=== PATIENT | female | born 1980 | race African-American/Black ===

== ENCOUNTER 2016-06-23 00:19 | Emergency (ER) | payer BC, MEDICAID, OTHER ==
[~2016-06-23] VITALS: Ht 170.2 cm; Wt 67.2 kg
[~2016-06-23 00:19] MED LIST: IBUP400 PO; OSEL75 PO; TYLE500T PO
[2016-06-23 01:21] LABS: BLOOD, URINE NEG (NEG); GLUCOSE,URINE NEG (NEG); KETONE, URINE NEG (NEG); NITRITE,URINE NEG (NEG)
[2016-06-23 01:32] LABS: URINE COLOR YELLOW (YELLW/STRAW)
[2016-06-23 01:34] LABS: RBC, URINE 0-3 /hpf (0-3)
[2016-06-23 01:35] LABS: BACTERIA, URINE RARE /hpf; COMMENT (UR) CULT NOT INDICATED; CULTURE IF INDICATED CULT NOT INDICATED; MUCUS URINE OCC /lpf (OCC)
[2016-06-23] MEDS ORDERED: ACET25TA4 (03:08)
[2016-06-23] MEDS ORDERED: IBUP400T20 PO (03:08)
[2016-06-23] MEDS ORDERED: ZANT150T2 PO (03:08)
[2016-06-23 03:10] VITALS: BP 128/85; PULSE 77; RESP 16; TEMP 98.5
--- NOTE | 2016-06-23 04:53 | PD ---
HPI Chief Complaint: Abdominal Pain Time Seen by Provider: 03:14 Travel History International Travel<30 days: No Contact w/Intl Traveler<30days: No Traveled to known affect area: No History of Present Illness HPI The patient is 35 years old. She arrives complaining of abdominal pain in the epigastric and suprapubic distributions. She has taken numerous at home tests which have all been negative. She reports some nausea as well as lightheadedness. After talking with the mother she arrives with a concern she may have an ectopic . She also states she suffers with GERD on a chronic basis. She has missed her last 2 menstrual cycles, very abnormal for her. Her past medical history includes GERD insomnia and anxiety. She denies a past surgical history. She has allergies to Naprosyn latex. She takes Zantac and Benadryl as needed. PFSH Past Medical History Hx Anticoagulant Therapy: No Asthma: Yes (BRONCHITIS) Anxiety: Yes Depression: Yes Cardiovascular Problems: No Chemotherapy: No Cerebrovascular Accident: No Diabetes: Yes ( DIABETIES) Patient Takes Glucophage: No Diminished Hearing: No Gastrointestinal Disorders: Yes (GERD) GERD: Yes Genitourinary: Yes (UTI) Insomnia: Yes Psychiatric: Yes (ANXIETY) Respiratory: Yes (Asthma ) Immunizations Current: No Tetanus Vaccination: Unknown Influenza Vaccination: No ?: Unknown LMP: 04/24/2016 : 2 Para: 1 Miscarriage: 2 : 0 Ectopic : No Ovarian Cysts: No Dilation and Curettage (D&C): No Tubal Ligation: No Past Surgical History Hysterectomy: No Other Surgery: Yes (cyst remove for head) Social History Alcohol Use: Yes ("ONCE A YEAR") Tobacco Use: Yes (1 DAY) Substance Use: No Allergies-Medications (Allergen,Severity, Reaction): Coded Allergies: Latex (Verified Allergy, Severe, RASH, 06/23/16) PAIN AND ITCHY. Naproxen (Verified Adverse Reaction, Mild, NAUSEA, 06/23/16) Reported Meds & Prescriptions Reported Meds & Active Scripts Active Reported Acetaminophen Pm Extra St (Diphenhydramine-Acetaminophen) 500-25 mg Tab Zantac (Ranitidine HCl) 150 Mg Tab 150 Cap PO BID Ibuprofen 400 Mg Tab 400 Mg PO Q4H PRN Review of Systems Except as stated in HPI: all other systems reviewed are Neg General / Constitutional: No: Fever, Chills Gastrointestinal: Positive: Nausea, Abdominal Pain, No: Vomiting, Diarrhea Genitourinary: No: Urgency, Frequency, Dysuria Physical Exam Narrative GENERAL: 35-year-old female pleasant well-nourished well-developed no acute distress SKIN: Warm and dry. HEAD: Atraumatic. Normocephalic. EYES: Pupils equal and round. No scleral icterus. No injection or drainage. ENT: No nasal bleeding or discharge. Mucous membranes pink and moist. NECK: Trachea midline. No JVD. CARDIOVASCULAR: Regular rate and rhythm. RESPIRATORY: No accessory muscle use. Clear to auscultation. Breath sounds equal bilaterally. GASTROINTESTINAL: Soft. No suprapubic tenderness. Negative Yuan sign. No tenderness at McBurney's point. MUSCULOSKELETAL: Extremities without clubbing, cyanosis, or edema. No obvious deformities. NEUROLOGICAL: Awake and alert. No obvious cranial nerve deficits. Motor grossly within normal limits. Five out of 5 muscle strength in the arms and legs. Normal speech. PSYCHIATRIC: Appropriate mood and affect; insight and judgment normal. Data Data Last Documented VS Vital Signs Date Time Temp Pulse Resp B/P Pulse Ox O2 Delivery O2 Flow Rate FiO2 06/23/16 03:10 98.5 77 16 128/85 Vital signs reviewed Orders Urinalysis - C+S If Indicated (06/23/16 01:09) Ed Urine Pregnancytest Poc (06/23/16 04:32) Labs Laboratory Tests Test 06/23/16 01:06 Urine Color YELLOW Urine Turbidity CLEAR Urine pH 6.0 Urine Specific [place] 1.018 Urine Protein NEG mg/dL Urine Glucose (UA) NEG mg/dL Urine Ketones NEG mg/dL Urine Occult Blood NEG Urine Nitrite NEG Urine Bilirubin NEG Urine Leukocyte Esterase TRACE Urine RBC 0-3 /hpf Urine WBC 3-5 /hpf Urine Squamous Epithelial 6-8 /hpf Cells Urine Amorphous Sediment SMALL Urine Bacteria RARE /hpf Urine Mucus OCC /lpf Microscopic Urinalysis Comment CULT NOT INDICATED MDM Medical Decision Making Medical Screen Exam Complete: Yes Emergency Medical Condition: Yes Medical Record Reviewed: Yes Differential Diagnosis Constipation, Gastritis, Acute Cholecystitis, Biliary Colic, Pancreatitis, PANDYA , Hepatitis, Bowel Obstruction, Cystitis, Mesenteric Ischemia, AAA, Appendicitis , Renal Stone/Hydronephrosis, GERD, perforated viscous Narrative Course Urinalysis is a contaminated specimen and cystitis is considered unlikely The urine test is normal The patient was reassured that she does not have ectopic . The abdomen exam is benign. Symptoms were present for only a brief time. Acute disease is considered reasonably safely excluded based on exam and history. Return precautions discussed. Patient reassured. Diagnosis Primary Impression: Abdominal pain Qualified Code: R10.13 - Epigastric pain Referrals: Primary Care Physician 2 days Additional Instructions: You have a choice when it comes to health care, and we are glad that you chose [facility]. Hopefully, we have met your expectations on today's visit. You are welcome to return to [facility] at any time, as we are committed to meeting the health care needs of our community. Med/Other Pt SpecificInfo: No Change to Meds Disposition: 01 DISCHARGE HOME Condition: Juan Quintero MD Jun 23, 2016 04:53
== END 2016-06-23 05:06 | disposition home or self-care (01) ==
LOC: PHED 00:19
DX: R10.13 Epigastric pain (principal); R11.0 Nausea; R42 Dizziness and giddiness; K21.9 Gastro-esophageal reflux disease without esophagitis; F17.210 Nicotine dependence, cigarettes, uncomplicated
CPT/HCPCS: 81001; 84703; 99284

== ENCOUNTER 2016-08-19 14:41 | Emergency (ER) | payer MEDICAID, OTHER ==
[~2016-08-19] VITALS: Ht 170.2 cm; Wt 66.0 kg
[~2016-08-19 14:41] MED LIST changes: +ACET25TA4; -IBUP400 PO; +IBUP400T20 PO; -OSEL75 PO; -TYLE500T PO; +ZANT150T2 PO
[2016-08-19 14:47] VITALS: BP 135/83; PULSE 105; RESP 18; TEMP 98.3; O2SAT 99
--- NOTE | 2016-08-19 14:58 | PD ---
HPI Chief Complaint: Oral / Dental Pain or Problem Time Seen by Provider: 14:57 Travel History International Travel<30 days: No Contact w/Intl Traveler<30days: No Traveled to known affect area: No History of Present Illness HPI 36-year-old Afro-[place]ian female presents the emergency department with left upper dental pain since yesterday. Specifically the #16 tooth. She complains of pain, feeling of swelling in the right upper cheek, and pain radiating to the ear. Patient complains of sensitivity to hot and cold. She denies fever, chills, or difficulty swallowing. She is allergic to latex and Naprosyn. PFSH Past Medical History Hx Anticoagulant Therapy: No Asthma: Yes (BRONCHITIS) Anxiety: Yes Depression: Yes Cardiovascular Problems: No Chemotherapy: No Cerebrovascular Accident: No Diabetes: Yes ( DIABETIES) Diminished Hearing: No Gastrointestinal Disorders: Yes (GERD) GERD: Yes Genitourinary: Yes (UTI) Insomnia: Yes Psychiatric: Yes (ANXIETY) Respiratory: Yes (Asthma ) Immunizations Current: No ?: Not : 2 Para: 1 Miscarriage: 2 : 0 Ectopic : No Ovarian Cysts: No Dilation and Curettage (D&C): No Tubal Ligation: No Past Surgical History Hysterectomy: No Other Surgery: Yes (cyst remove for head) Social History Alcohol Use: Yes ("ONCE A YEAR") Tobacco Use: Yes (1 PK DAY) Substance Use: No Allergies-Medications (Allergen,Severity, Reaction): Coded Allergies: Latex (Verified Allergy, Severe, RASH, 08/19/16) PAIN AND ITCHY. Naproxen (Verified Adverse Reaction, Mild, NAUSEA, 08/19/16) Reported Meds & Prescriptions Reported Meds & Active Scripts Active Reported Zantac (Ranitidine HCl) 150 Mg Tab 150 Cap PO BID Review of Systems Except as stated in HPI: all other systems reviewed are Neg General / Constitutional: No: Fever Eyes: No: Visual changes HENT: Positive: Dental Difficulties, Earache, No: Headaches, Vertigo, Lightheadedness, Sore Throat, Rhinitis, Rhinorrhea, Congestion, Nosebleed, Neck Stiffness, Neck Pain, Masses, Gingival Bleeding, Ear Discharge, Other Cardiovascular: No: Chest Pain or Discomfort Respiratory: No: Shortness of Breath Gastrointestinal: No: Abdominal Pain Genitourinary: No: Dysuria Musculoskeletal: No: Pain Skin: No Rash Neurologic: No: Weakness Psychiatric: No: Depression Endocrine: No: Polydipsia Hematologic/Lymphatic: No: Easy Bruising Physical Exam Narrative GENERAL: Patient appears in [id number]-[id number] distress. SKIN: Warm and dry. Normal color. Normal turgor. No rash. HEAD: Atraumatic. Normocephalic. Patient has mild swelling over the left upper jaw. EYES: Pupils equal and round. No scleral icterus. No injection or drainage. ENT: No nasal bleeding or discharge. Mucous membranes pink and moist. Patient has tenderness with palpation of the #16 tooth, without significant signs of abscess currently. NECK: Trachea midline. Pharynx is clear. Airway is patent. CARDIOVASCULAR: Regular rate and rhythm. RESPIRATORY: No accessory muscle use. Clear to auscultation. Breath sounds equal bilaterally. GASTROINTESTINAL: Abdomen soft, non-tender, nondistended. Hepatic and splenic margins not palpable. MUSCULOSKELETAL: Extremities without clubbing, cyanosis, or edema. No obvious deformities. NEUROLOGICAL: Awake and alert. No obvious cranial nerve deficits. Motor grossly within normal limits. Five out of 5 muscle strength in the arms and legs. Normal speech. PSYCHIATRIC: Appropriate mood and affect; insight and judgment normal. Data Data Last Documented VS Vital Signs Date Time Temp Pulse Resp B/P Pulse Ox O2 Delivery O2 Flow Rate FiO2 08/19/16 14:47 98.3 105 18 135/83 99 Orders Ketorolac Inj (Toradol Inj) (08/19/16 15:00) Ambq-Rjul-Ppyb Liq (Magic Mouthwash Adul (08/19/16 15:00) Amoxicillin (Trimox) (08/19/16 15:00) [facility] Medical Decision Making Medical Screen Exam Complete: Yes Emergency Medical Condition: Yes Differential Diagnosis Dental pain. Dental caries. Dental abscess. Narrative Course Patient is medically stable at time of exam. Patient is given Toradol 60 mg IM as well as Magic mouthwash 10 mL swish and spit. Patient is given her first dose of amoxicillin 875 mg by mouth. Patient will be continued on amoxicillin 875 twice a day 10 days. Patient also continued on Magic mouthwash 5-10 mL every 2 hours when necessary pain. 120 mL with 1 refill. Patient is given ibuprofen 800 mg 3 times daily with food #30. Patient take extra strength Tylenol as well. Patient should follow with dental care as soon as possible. Patient can return to emergency department worsening symptoms as needed. Diagnosis Primary Impression: Abscess, dental Referrals: Dentist Patient Instructions: Dental Abscess (ED), General Instructions Additional Instructions: Patient is given Toradol 60 mg IM as well as Magic mouthwash 10 mL swish and spit. Patient is given her first dose of amoxicillin 875 mg by mouth. Patient will be continued on amoxicillin 875 twice a day 10 days. Patient also continued on Magic mouthwash 5-10 mL every 2 hours when necessary pain. 120 mL with 1 refill. Patient is given ibuprofen 800 mg 3 times daily with food #30. Patient take extra strength Tylenol as well. Patient should follow with dental care as soon as possible. Patient can return to emergency department worsening symptoms as needed. Med/Other Pt SpecificInfo: Prescription(s) given Disposition: 01 DISCHARGE HOME Condition: Stable Jim Apple August 19, 2016 14:58
[2016-08-19] MEDS ORDERED: KETOROLAC TROMETHAMINE 60 MG/2 ML (IM) VIAL IM ONE (15:00)
[2016-08-19] MEDS ORDERED: NYSTAT/DIPHENHY/LIDO MOUTHWASH (Adult) 120ML SWISH-SWAL ONE (15:00)
[2016-08-19] MEDS ORDERED: AMOXICILLIN 875 MG TAB PO ONE (15:00)
[2016-08-19] MEDS ORDERED: AMOX875T PO (15:34)
[2016-08-19] MEDS ORDERED: MAGICADU2 SWISH-SWAL (15:34)
[2016-08-19] MEDS ORDERED: IBUP800T23 PO (15:34)
== END 2016-08-19 15:35 | disposition home or self-care (01) ==
LOC: PHEFT 14:41
DX: K04.7 Periapical abscess without sinus (principal); J45.909 Unspecified asthma, uncomplicated; K21.9 Gastro-esophageal reflux disease without esophagitis; F17.210 Nicotine dependence, cigarettes, uncomplicated
CPT/HCPCS: 96372; 99282; J1885

== ENCOUNTER 2016-09-17 11:41 | Emergency (ER) | payer OTHER ==
[~2016-09-17] VITALS: Ht 170.2 cm; Wt 67.0 kg
[~2016-09-17 11:41] MED LIST changes: -ACET25TA4; +AMOX875T PO; -IBUP400T20 PO; +IBUP800T23 PO; +MAGICADU2 SWISH-SWAL
[2016-09-17 11:43] VITALS: BP 125/85; PULSE 114; RESP 16; TEMP 98.3; O2SAT 99
[2016-09-17] MEDS ORDERED: IBUP800T23 PO (13:29)
[2016-09-17] MEDS ORDERED: ROBA500T PO (13:29)
[2016-09-17] MEDS ORDERED: KETOROLAC TROMETHAMINE 60 MG/2 ML (IM) VIAL IM ONE (13:30)
--- NOTE | 2016-09-17 13:30 | PD ---
HPI Chief Complaint: Back/ Neck Pain or Injury Time Seen by Provider: 13:15 Travel History International Travel<30 days: No Contact w/Intl Traveler<30days: No Traveled to known affect area: No History of Present Illness HPI 36-year-old female presents emergency department for evaluation of back pain 1 day after lifting heavy laundry basket. Patient reports the pain is spasming in nature, nonradiating, localized to the left thoracic region, similar to previous muscle spasms. She reports mild improvement with Motrin 800. She denies numbness or tingling in the lower extremities, incontinence, lower extremity weakness, chest pain, abdominal pain, shortness breath. PFSH Past Medical History Hx Anticoagulant Therapy: No Asthma: Yes (BRONCHITIS) Anxiety: Yes Depression: Yes Cardiovascular Problems: No Chemotherapy: No Cerebrovascular Accident: No Patient Takes Glucophage: No Diminished Hearing: No Gastrointestinal Disorders: Yes (GERD) GERD: Yes Genitourinary: Yes (UTI) Insomnia: Yes Psychiatric: Yes (ANXIETY) Respiratory: Yes (Asthma ) Immunizations Current: No Tetanus Vaccination: Unknown Influenza Vaccination: No ?: Not : 3 Para: 1 Miscarriage: 2 : 0 Ectopic : No Ovarian Cysts: No Dilation and Curettage (D&C): No Tubal Ligation: No Past Surgical History Surgical History: No Previous Surgery Hysterectomy: No Other Surgery: Yes (cyst remove for head) Social History Alcohol Use: Yes (Rare) Tobacco Use: Yes (1 PPD) Substance Use: No Allergies-Medications (Allergen,Severity, Reaction): Coded Allergies: Latex (Verified Allergy, Severe, RASH, 09/17/16) PAIN AND ITCHY. Naproxen (Verified Adverse Reaction, Mild, NAUSEA, 09/17/16) Reported Meds & Prescriptions Reported Meds & Active Scripts Active Magic Mouthwash Adult Liq (Multi-Ingredient Mouthwash/Gargle) 120 Ml Susp 5 Ml SWISH-SWAL ACHS Each 5 mL contains: Nystatin 200,000 units, Diphenhydramine 4.25 mg, Viscous Lidocaine 10 mg, Unger syrup 0.8 mL Ibuprofen 800 Mg Tab 800 Mg PO Q8H PRN Amoxicillin 875 Mg Tab 875 Mg PO BID Reported Zantac (Ranitidine HCl) 150 Mg Tab 150 Cap PO BID Review of Systems Except as stated in HPI: all other systems reviewed are Neg Physical Exam Narrative GENERAL: Alert, well-appearing female. No acute distress SKIN: Focused skin assessment warm/dry. HEAD: Atraumatic. Normocephalic. CARDIOVASCULAR: Regular rate and rhythm. No murmur appreciated. RESPIRATORY: No accessory muscle use. Clear to auscultation. Breath sounds equal bilaterally. GASTROINTESTINAL: Abdomen soft, non-tender, nondistended. Hepatic and splenic margins not palpable. MUSCULOSKELETAL: No obvious deformities. No clubbing. No cyanosis. No edema. 2+ DTRs. Dorsiflex and plantar flexion intact. BACK: No midline spine tenderness. Tenderness right paraspinous muscles thoracic region. NEUROLOGICAL: Awake and alert. No obvious cranial nerve deficits. Motor grossly within normal limits. Normal speech. PSYCHIATRIC: Appropriate mood and affect; insight and judgment normal. Data Data Last Documented VS Vital Signs Date Time Temp Pulse Resp B/P Pulse Ox O2 Delivery O2 Flow Rate FiO2 09/17/16 11:43 98.3 114 16 125/85 99 MDM Medical Decision Making Medical Screen Exam Complete: Yes Emergency Medical Condition: Yes Differential Diagnosis Thoracic muscle strain, lumbar strain, herniated disc, Narrative Course 36-year-old female presents emergency department for evaluation of right thoracic back pain after bending over and picking up a heavy basket of laundry. She reports similar pain in the past with previous muscle spasms. She took Motrin 800 with minimal relief. On exam patient has no midline spine tenderness , no weakness or pain in lower extremities, no incontinence. Patient has tender right sided thoracic paraspinous muscles. Diagnosis Primary Impression: Strain of thoracic region Qualified Code: S29.019A - Strain of thoracic region, initial encounter Referrals: Primary Care Physician Scripts Methocarbamol (Robaxin)500 Mg [id number] Mg PO TID PRN (MUSCLE SPASM) #12 TAB Prov:Ayse Henson 09/17/16 Ibuprofen 800 Mg [id number] Mg PO Q8H PRN (Pain/Inflammation) #30 TAB Prov:Ayse Henson 09/17/16 Disposition: 01 DISCHARGE HOME Condition: Stable Ayse Henson Sep 17, 2016 13:30
[2016-09-17] MEDS ORDERED: ORPHENADRINE INJ 60 MG/2 ML AMP IM ONE (13:45)
== END 2016-09-17 13:52 | disposition home or self-care (01) ==
LOC: PHED 11:41 → PHEFT 13:52
DX: S29.012A Strain of muscle and tendon of back wall of thorax, initial encounter (principal); X50.9XXA Other and unspecified overexertion or strenuous movements or postures, initial encounter; Y93.E2 Activity, laundry
CPT/HCPCS: 96372; 99284; J2360

== ENCOUNTER 2017-04-11 00:36 | Emergency (ER) | payer OTHER ==
[~2017-04-11] VITALS: Ht 170.2 cm; Wt 73.0 kg
[~2017-04-11 00:36] MED LIST changes: +IBUP1TAB7 PO; -IBUP800T23 PO; +ROBA500T PO
[2017-04-11 00:39] VITALS: BP 129/74; PULSE 96; RESP 20; TEMP 98.1; O2SAT 98
[2017-04-11] MEDS ORDERED: IBUP1TAB5 PO (00:52)
[2017-04-11] MEDS ORDERED: IBUP-232 PO (01:47)
[2017-04-11] MEDS ORDERED: AMOX875T PO (01:47)
--- NOTE | 2017-04-11 01:48 | PD ---
HPI Chief Complaint: Oral / Dental Pain or Problem Time Seen by Provider: 00:41 Travel History International Travel<30 days: No Contact w/Intl Traveler<30days: No Traveled to known affect area: No History of Present Illness HPI The patient is a 36-year-old female who states she has had dental problems since she was a child. She has not yet seen a dentist. She has had multiple visits to emergency department for dental infections. She complains of tooth # 1 in particular being painful but has multiple teeth in her mouth that apparently have dental infections. She denies any fever. She states she had a heart murmur when she is but apparently not now. PFSH Past Medical History Hx Anticoagulant Therapy: No Asthma: Yes (BRONCHITIS) Anxiety: Yes Depression: Yes Cardiovascular Problems: No Chemotherapy: No Cerebrovascular Accident: No Diminished Hearing: No Gastrointestinal Disorders: Yes (GERD) GERD: Yes Genitourinary: Yes (UTI) Insomnia: Yes Psychiatric: Yes (ANXIETY) Respiratory: Yes (Asthma ) Immunizations Current: No ?: Not : 3 Para: 1 Miscarriage: 2 : 0 Ectopic : No Ovarian Cysts: No Dilation and Curettage (D&C): No Tubal Ligation: No Past Surgical History Hysterectomy: No Other Surgery: Yes (cyst remove for head) Social History Alcohol Use: Yes (Rare) Tobacco Use: Yes (1 PPD) Substance Use: No Allergies-Medications (Allergen,Severity, Reaction): Coded Allergies: latex (Verified Allergy, Severe, RASH, 04/11/17) PAIN AND ITCHY. naproxen (Verified Adverse Reaction, Mild, NAUSEA, 04/11/17) Reported Meds & Prescriptions Reported Meds & Active Scripts Active Amoxicillin 875 Mg Tab 875 Mg PO BID Reported Ibuprofen 400 Mg Tab 400 Mg PO Q8H PRN Review of Systems Except as stated in HPI: all other systems reviewed are Neg Physical Exam Narrative GENERAL: Well-nourished, well-developed patient in minimal apparent distress with her dental discomfort. Her vital signs are normal except for heart rate of 96. When I see the patient her heart rate is in the mid 80s. SKIN: Focused skin assessment warm/dry. No skin rash is seen. HEAD: Normocephalic. EYES: No scleral icterus. No injection or drainage. NECK: Supple, trachea midline. No JVD or lymphadenopathy. CARDIOVASCULAR: Regular rate and rhythm without murmurs, gallops, or rubs. RESPIRATORY: Breath sounds equal bilaterally. No accessory muscle use. GASTROINTESTINAL: Abdomen soft, non-tender, nondistended. MUSCULOSKELETAL: No cyanosis, or edema. BACK: Nontender without obvious deformity. No CVA tenderness. DENTAL: No malocclusion. Tooth #1 is broken down and exquisitely tender. No drainable abscesses are noted in the mouth. Multiple other teeth are tender. Data Data Last Documented VS Vital Signs Date Time Temp Pulse Resp B/P (MAP) Pulse Ox O2 Delivery O2 Flow Rate FiO2 04/11/17 00:39 98.1 96 20 129/74 (92) 98 MDM Medical Decision Making Medical Screen Exam Complete: Yes Emergency Medical Condition: Yes Medical Record Reviewed: Yes Differential Diagnosis Dental infection, drainable abscess, heart murmur Narrative Course At this time, I cannot hear heart murmur. She does have multiple dental infections. No drainable abscess is seen. The patient will be put on antibiotics, amoxicillin 875 twice daily for 10 days with multiple refills. She 'll also get a prescription for ibuprofen 600 mg to take 3 times daily. She shouldn't combine ibuprofen and Tylenol for pain. Diagnosis Primary Impression: Chronic dental infection Additional Instructions: As we discussed, it is necessary for you to follow-up with a dentist as soon as possible. The antibiotic is taken twice daily for 10 days but you have multiple refills. It is very likely that the dentist wanted you to be on antibiotics at the time he sees you. Med/Other Pt SpecificInfo: Prescription(s) given Scripts Ibuprofen (Ibuprofen) 600 Mg Tab 600 MG PO TID, #44 TAB 0 Refills Prov: Heriberto Gill MD 04/11/17 Amoxicillin (Amoxicillin) 875 Mg Tab 875 MG PO BID for Infection for 10 Days, #20 TAB 0 Refills Prov: Heriberto Gill MD 04/11/17 Disposition: 01 DISCHARGE HOME Condition: Stable Heriberto Gill MD Apr 11, 2017 01:47
[2017-04-11] MEDS ORDERED: ALUMINUM/MAGNESIUM/SIMETH 30 ML CUP PO ONE (02:00)
[2017-04-11] MEDS ORDERED: AMOXICILLIN 875 MG TAB PO ONE (02:00)
[2017-04-11] MEDS ORDERED: IBUPROFEN 600 MG TAB PO ONE (02:00)
== END 2017-04-11 02:09 | disposition home or self-care (01) ==
LOC: PHED 00:36
DX: K04.7 Periapical abscess without sinus (principal); J45.909 Unspecified asthma, uncomplicated; F41.9 Anxiety disorder, unspecified; F32.9 Major depressive disorder, single episode, unspecified; K21.9 Gastro-esophageal reflux disease without esophagitis; G47.00 Insomnia, unspecified; F17.200 Nicotine dependence, unspecified, uncomplicated
CPT/HCPCS: 99283